=== PATIENT | male | born 1960 | race Caucasian/White ===

== ENCOUNTER 2020-01-12 07:24 | Outpatient (CLI) | payer OTHER | END 2020-01-12 23:59 | disposition home or self-care (01) | LOC: RAD 07:24 | DX: M16.11 Unilateral primary osteoarthritis, right hip (principal); M25.451 Effusion, right hip ==

== ENCOUNTER → 2020-08-16 | Outpatient (CLI) | payer OTHER | END | disposition home or self-care (01) | LOC: RAD 12:47 | DX: M47.817 Spondylosis without myelopathy or radiculopathy, lumbosacral region (principal); M48.07 Spinal stenosis, lumbosacral region | CPT/HCPCS: 72148 ==